=== PATIENT | male | born 1990 | race Caucasian/White ===

== ENCOUNTER 2020-09-11 20:28 | Emergency (ER) | payer BC, OTHER ==
[~2020-09-11] VITALS: Ht 180.3 cm; Wt 65.8 kg
[2020-09-11] MEDS ORDERED: ADDERALL 10 MG10 MG PO (20:37)
[2020-09-11 23:46] VITALS: BP 129/88
== END 2020-09-11 23:50 | disposition home or self-care (01) ==
LOC: ER 20:28
DX: T17.228A Food in pharynx causing other injury, initial encounter (principal); Q39.9 Congenital malformation of esophagus, unspecified; Z79.899 Other long term (current) drug therapy; X58.XXXA Exposure to other specified factors, initial encounter; Y93.89 Activity, other specified; Y92.89 Other specified places as the place of occurrence of the external cause; Y99.8 Other external cause status
CPT/HCPCS: 62110; 62900